=== PATIENT | male | born 1950 | race Caucasian/White ===

== ENCOUNTER 2020-01-15 21:40 | Emergency (ER) | payer OTHER, MEDICAID ==
[~2020-01-15] VITALS: Ht 180.3 cm; Wt 90.7 kg
--- NOTE | 2020-01-15 21:47 | NUR ---
BIB EMS FROM [facility] C/O HIGHBLOOD PRESSURE AFTER DIALYSIS. PER [facility],S. "CAME TO DIALYSIS FOR EXTRA TODAY" PT AAOX4, PLACED IN BED 9 ON MONITOR AND PULSE OX. PER TRIAGE VITALS BP: 210/79 AND HR 77. UPON ASSESSMENT BP 168/92 WITH HR OF 77. ORDERED LABS AND CHEST XRAY WITH 20MG IVP PF HYDRALIZE. WILL HOLD HYDRALIZE FOR NOW.
--- NOTE | 2020-01-15 22:23 | NUR ---
CHAIRMAN PRESIDENT AND CHIEF EXECUTIVE OFFICER AT BEDSIDE FOR LABS
--- NOTE | 2020-01-15 22:23 | NUR ---
RADIOLOGST AT BEDSIDEE
[2020-01-15] MEDS ORDERED: hydrALAZINE HCL IV 20 MG VIAL IV ONE (22:30)
[2020-01-15 22:35] LABS: BASOPHILS # (AUTO) 0.1 /CMM (0.0-0.2); BASOPHILS % (AUTO) 0.9 % (0.0-2.0); EOSINOPHILS % (AUTO) 3.1 % (0.0-6.0); HEMATOCRIT 32 % (39-51); HEMOGLOBIN 10.3 g/dL (13.5-17.5); LYMPHOCYTES # (AUTO) 0.9 /CMM (0.8-4.8); LYMPHOCYTES % (AUTO) 6.2 % (20.0-44.0); MEAN CORPUSCULAR HGB CONC 32 g/dl (31.0-36.0); MEAN CORPUSCULAR VOLUME 93 fL (80-96); MONOCYTES # (AUTO) 1.1 /CMM (0.1-1.30); MONOCYTES % (AUTO) 8.2 % (2.0-12.0); NEUTROPHILS # (AUTO) 11.4 /CMM (1.8-8.9); NEUTROPHILS % (AUTO) 81.6 % (43.0-81.0); PLATELET COUNT (AUTO) 157 /CMM (150-450); RED BLOOD CELL COUNT(AUTO) 3.43 MIL/uL (4.5-6.0); WHITE BLOOD COUNT (AUTO) 13.9 K/uL (4.3-11.0)
[2020-01-15 23:01] LABS: ALBUMIN 3.4 g/dL (3.4-5.0); BILIRUBIN,DIRECT 0.2 mg/dL (0.0-0.2); BILIRUBIN,TOTAL 0.5 mg/dL (0.2-1.0); CALCIUM, SERUM 9.2 mg/dL (8.5-10.1); CREATININE 5.6 mg/dL (0.6-1.3); POTASSIUM 3.4 mmol/L (3.5-5.1); TOTAL PROTEIN, SERUM 7.2 g/dL (6.4-8.2)
--- NOTE | 2020-01-15 23:33 | NUR ---
TRANSPORT CALLED ([facility]) [id number]
--- NOTE | 2020-01-16 00:17 | NUR ---
Patient is resting comfortably in bed with eyes closed. Easily aroused. VSS
--- NOTE | 2020-01-16 02:43 | NUR ---
PT ASLEEP, PROVIDED WITH BLANKET.
--- NOTE | 2020-01-16 04:47 | NUR ---
PT PROVIDED WITH WATER AND MORE BLANKETS.
--- NOTE | 2020-01-16 06:03 | NUR ---
TOTAL PT CARE DONE.
[2020-01-16] MEDS ORDERED: hydrALAZINE HCL IV 20 MG VIAL ONE (06:05)
--- NOTE | 2020-01-16 06:32 | NUR ---
Report given to [facility] for continuation of care.
[2020-01-16 07:17] VITALS: BP 143/75
--- NOTE | 2020-01-16 07:17 | NUR ---
[facility] at bedside for transport to [facility].
== END 2020-01-16 07:18 ==
LOC: ER 21:42
DX: I10 Essential (primary) hypertension (principal); E78.5 Hyperlipidemia, unspecified; E11.9 Type 2 diabetes mellitus without complications; E03.9 Hypothyroidism, unspecified; D64.9 Anemia, unspecified; Z99.2 Dependence on renal dialysis
CPT/HCPCS: 36415; 71045; 80048; 80076; 83880; 84484; 85025; 85730; 93005 ×2; 96374; 99285; J0360